=== PATIENT | male | born 1985 | race Two or more races ===

== ENCOUNTER 2018-07-19 11:15 | Emergency (ER) | payer MEDICAID, OTHER ==
[~2018-07-19] VITALS: Ht 177.8 cm; Wt 81.6 kg
[2018-07-19 11:53] VITALS: BP 116/78
[2018-07-19 11:54] LABS: Basophils # (auto) 0 uL; Basophils % (auto) 0.8 % (0.0-2.0); Eosinophils # (auto) 0.2 uL; Eosinophils % (auto) 3.7 % (0.0-7.0); Hematocrit 42.7 % (41.0-53.0); Hemoglobin 13.9 g/dL (13.5-17.5); Lymphocytes # (auto) 1.5 uL; Mean Corpuscular Hemoglobin 28.4 pg (28.0-32.0); Mean Corpuscular Hgb Conc. 32.6 g/dL (32.0-36.0); Mean Corpuscular Volume 86.9 fL (80.0-100.0); Monocytes # (auto) 0.4 uL; Monocytes % (auto) 7.1 % (0.0-12.0); Neutrophils # (auto) 3.2 uL; Neutrophils % (auto) 60.4 % (37.0-80.0); Platelet Count (auto) 229 10^3/uL (140-450); Red Blood Cells 4.91 10^6/uL (4.5-5.90); Red Cell Distribution Width 15.7 % (11.8-14.3); White Blood Cell 5.3 10^3/uL (4.4-10.8)
[2018-07-19 12:14] LABS: Albumin 3.8 g/dL (3.4-5.0); BUN/Creatinine Ratio 10.8; Calcium 8.7 mg/dL (8.5-10.1); Magnesium 1.9 mg/dL (1.6-2.6); Potassium 4.2 mmol/L (3.5-5.1)
[2018-07-19 12:17] LABS: Bilirubin, Total 0.4 mg/dL (0.2-1.0)
== END 2018-07-19 13:42 | disposition home or self-care (01) ==
LOC: EDBD 11:15 → ER 11:19
DX: I47.1 Supraventricular tachycardia (principal)
CPT/HCPCS: 36415; 71045; 80053; 83735; 85025; 93005; 94761